=== PATIENT | male | born 1970 | race Two or more races ===

== ENCOUNTER 2019-03-06 19:54 | Emergency (ER) | payer MEDICAID ==
[~2019-03-06] VITALS: Ht 175.3 cm; Wt 87.0 kg
[2019-03-06] MEDS ORDERED: FAMOTIDINE 20MG TABLET PO ONE (20:45)
[2019-03-06] MEDS ORDERED: ALPRAZOLAM 0.25 MG TABLET PO ONE (20:45)
[2019-03-06] MEDS ORDERED: VISCOUS LIDOCAINE 2% 15 ML UDC MM ONE (21:00)
[2019-03-06] MEDS ORDERED: MAGNESIUM/ALUMINUM HYDROXIDE/SIMETHICONE 30ML UDC PO ONE (21:00)
[2019-03-07 01:45] VITALS: BP 125/74
== END 2019-03-07 01:47 | disposition home or self-care (01) ==
LOC: ER 19:54
DX: J39.2 Other diseases of pharynx (principal); K21.9 Gastro-esophageal reflux disease without esophagitis
CPT/HCPCS: 36415; 84484; 93005; 99284; Z7610